=== PATIENT | male | born 1965 | race Caucasian/White ===

== ENCOUNTER 2018-06-15 11:50 | Emergency (ER) | payer MEDICARE, OTHER ==
[~2018-06-15] VITALS: Ht 170.2 cm; Wt 152.0 kg
--- NOTE | 2018-06-15 12:13 | NUR ---
UA OBTAINED WITHOUT PROBLEM URINE CLEAR.
[2018-06-15 12:18] LABS: BILIRUBIN,URINE NEGATIVE (NEGATIVE); CLARITY,URINE CLEAR; COLOR,URINE YELLOW; GLUCOSE, URINE (UA) NEGATIVE (NEGATIVE); KETONES,URINE NEGATIVE (NEGATIVE); LEUKOCYTE ESTERASE ,URINE NEGATIVE (NEGATIVE); NITRITE,URINE NEGATIVE (NEGATIVE); PH,URINE 7 (5-9); PROTEIN,URINE NEGATIVE (NEGATIVE); UROBILINOGEN,URINE NORMAL (NORMAL)
[2018-06-15 12:21] LABS: BASOPHILS % (AUTO) 0 % (0-10); EOSINOPHILS # (AUTO) 0.1 10^3/uL (0.0-0.3); EOSINOPHILS % (AUTO) 1 % (0-10); HEMATOCRIT 49 % (40-54); HEMOGLOBIN 16.6 G/DL (13.3-17.7); LYMPHOCYTES # (AUTO) 1.4 X 10^3 (1.0-4.0); LYMPHOCYTES % (AUTO) 18 % (12-44); MEAN CORPUSCULAR HEMOGLOBIN 31 PG (25-34); MEAN CORPUSCULAR HGB CONC 34 G/DL (32-36); MEAN CORPUSCULAR VOLUME 90 FL (80-99); MEAN PLATELET VOLUME 10.9 FL (7.4-10.4); MONOCYTES # (AUTO) 0.6 X 10^3 (0.0-1.0); MONOCYTES % (AUTO) 8 % (0-12); NEUTROPHILS # (AUTO) 5.6 X 10^3 (1.8-7.8); NEUTROPHILS % (AUTO) 72 % (42-75); PLATELET COUNT 158 10^3/uL (130-400); RED CELL DISTRIBUTION WIDTH 14.6 % (10.0-14.5); WHITE BLOOD COUNT 7.7 10^3/uL (4.3-11.0)
[2018-06-15 12:28] LABS: BACTERIA,URINE NEGATIVE /HPF; SQUAMOUS EPITHELIAL CELL,UR RARE /HPF
--- NOTE | 2018-06-15 12:41 | NUR ---
C/O OF LEG'S STINGING AND BURNING P NETTE AGUILAR NOTIFIED.
--- NOTE | 2018-06-15 12:42 | ED GU-Female ---
General Chief Complaint: - Urinary Stated Complaint: TROUBLE URINATING Nursing Triage Note: AMB TO ROOM WITH FEMALE PATIENT DEAF SHE WILL SIGN FOR PATIENT. C/O HAVING PROBLEM WITH URNATION. REPORTS HAS HAD PROBLEMS FOR 2 DAYS. Nursing Sepsis Screen: No Definite Risk Source: patient Exam Limitations: no limitations History of Present Illness Date Seen by Provider: Jun 15, 2018 Time Seen by Provider: 12:38 Initial Comments this deaf/mute gentleman presents to ER with reports of dysuria, bilateral lower extremity swelling redness and pain. The dysuria has been 2 days. Via his family member who signs for him, occasionally he will void a small amount and occasionally he'll avoid a very large amount. He did void 200 mL of clear yellow urine on arrival.He's also had loose stools for 1 year. he just moved here from [facility] 2 weeks ago. He has not established care with anyone yet. He was told when in [place] that he had poor renal function and did not ever follow-up. He is concerned that may be contributing to his urinary symptoms. Also complains of bilateral lower extremity redness, stinging and burning. Timing/Duration: constant Severity/Quality: mild Location: unknown Radiation: none Activities at Onset: none Prior Genitourinary Problems: none Associated Symptoms: dysuria, urinary frequency Allergies and Home Medications Allergies Coded Allergies: No Known Drug Allergies (Unverified , 06/15/18) Patient Home Medication List Home Medication List Reviewed: Yes Review of Systems Review of Systems Constitutional: see HPI; No chills, No fever EENTM: see HPI Respiratory: see HPI; No cough Cardiovascular: see HPI; No chest pain Genitourinary: see HPI, frequency Musculoskeletal: no symptoms reported Skin: see HPI Psychiatric/Neurological: No Symptoms Reported Endocrine: No Symptoms Reported Past Igkxwxq-[id number]-Rzcjnn Hx Patient Social History Alcohol Use: Occasionally Uses Recreational Drug Use: No Type Used: Smokeless Tobacco Recent Foreign Travel: No Contact w/Someone Who Travel: No Recent Infectious Disease Expo: No Past Medical History Surgeries: No Respiratory: No Cardiac: No Neurological: No Genitourinary: Yes (UNKNOWN KIDNEY ISSURES. ) Gastrointestinal: No Musculoskeletal: No Endocrine: No HEENT: No Hearing Impairment: Deaf Cancer: No Psychosocial: No Integumentary: No Physical Exam Vital Signs Vital Signs - First Documented 06/15/18 11:56 Temp 100.1 Pulse 77 Resp 18 B/P (MAP) 148/110 (123) Pulse Ox 93 Capillary Refill : Less Than 3 Seconds Height, Weight, BMI Height: 5'7.00" Weight: 335lbs. oz. 151.040205nu; BMI Method:Stated General Appearance: WD/WN, no apparent distress HEENT: PERRL/EOMI, normal ENT inspection Neck: non-tender, full range of motion Respiratory: no respiratory distress, no accessory muscle use Gastrointestinal: normal bowel sounds, non tender, soft Extremities: normal range of motion, other (circumferential tenderness to the ankles which are slightly erythematous Given his recent travel here from [facility] and appearance of sedentary lifestyle we will proceed with ultrasound venous lower kidneys.) Neurologic/Psychiatric: alert, normal mood/affect, oriented x 3 Skin: normal color, warm/dry Progress/Results/Core Measures Suspected Sepsis Recent Fever Within 48 Hours: No Infection Criteria Present: None New/Unexplained Altered Menta: No Sepsis Screen: No Definite Risk SIRS Temperature:100.1 Pulse: 77 Respiratory Rate: 18 Laboratory Tests 06/15/18 12:15: White Blood Count 7.7 Blood Pressure 148 /110 Mean: 123 Laboratory Tests 06/15/18 12:15: Creatinine 1.19, Platelet Count 158, Total Bilirubin 0.6 Results/Orders Lab Results Laboratory Tests Test 06/15/18 12:10 06/15/18 12:15 06/15/18 12:33 Range/Units Urine Color YELLOW Urine Clarity CLEAR Urine pH 7 5-9 Urine Specific Dwight 1.005 L 1.016-1.022 Urine Protein NEGATIVE NEGATIVE Urine Glucose (UA) NEGATIVE NEGATIVE Urine Ketones NEGATIVE NEGATIVE Urine Nitrite NEGATIVE NEGATIVE Urine Bilirubin NEGATIVE NEGATIVE Urine Urobilinogen NORMAL NORMAL MG/DL Urine Leukocyte Esterase NEGATIVE NEGATIVE Urine RBC (Auto) NEGATIVE NEGATIVE Urine RBC NONE /HPF Urine WBC NONE /HPF Urine Squamous Epithelial Cells RARE /HPF Urine Crystals NONE /LPF Urine Bacteria NEGATIVE /HPF Urine Casts NONE /LPF Urine Mucus NEGATIVE /LPF Urine Culture Indicated NO White Blood Count 7.7 4.3-11.0 10^3/uL Red Blood Count 5.38 4.35-5.85 10^6/uL Hemoglobin 16.6 13.3-17.7 G/DL Hematocrit 49 40-54 % Mean Corpuscular Volume 90 80-99 FL Mean Corpuscular Hemoglobin 31 25-34 PG Mean Corpuscular Hemoglobin Concent 34 32-36 G/DL Red Cell Distribution Width 14.6 H 10.0-14.5 % Platelet Count 158 130-400 10^3/uL Mean Platelet Volume 10.9 H 7.4-10.4 FL Neutrophils (%) (Auto) 72 42-75 % Lymphocytes (%) (Auto) 18 12-44 % Monocytes (%) (Auto) 8 0-12 % Eosinophils (%) (Auto) 1 0-10 % Basophils (%) (Auto) 0 0-10 % Neutrophils # (Auto) 5.6 1.8-7.8 X 10^3 Lymphocytes # (Auto) 1.4 1.0-4.0 X 10^3 Monocytes # (Auto) 0.6 0.0-1.0 X 10^3 Eosinophils # (Auto) 0.1 0.0-0.3 10^3/uL Basophils # (Auto) 0.0 0.0-0.1 10^3/uL Sodium Level 139 135-145 MMOL/L Potassium Level 4.0 3.6-5.0 MMOL/L Chloride Level 104 98-107 MMOL/L Carbon Dioxide Level 26 21-32 MMOL/L Anion Gap 9 5-14 MMOL/L Blood Urea Nitrogen 15 7-18 MG/DL Creatinine 1.19 0.60-1.30 MG/DL Estimat Glomerular Filtration Rate > 60 BUN/Creatinine Ratio 13 Glucose Level 101 70-105 MG/DL Calcium Level 9.0 8.5-10.1 MG/DL Corrected Calcium 8.9 8.5-10.1 MG/DL Total Bilirubin 0.6 0.1-1.0 MG/DL Aspartate Amino Transf (AST/SGOT) 18 5-34 U/L Alanine Aminotransferase (ALT/SGPT) 20 0-55 U/L Alkaline Phosphatase 79 40-136 U/L B-Type Natriuretic Peptide 45.2 <100.0 PG/ML Total Protein 6.9 6.4-8.2 GM/DL Albumin 4.1 3.2-4.5 GM/DL Glucometer 89 70-110 MG/DL My Orders Orders - BAYLEE PERDUE CASTING TECHNICIAN Cbc With Automated Diff (06/15/18 12:09) Comprehensive Metabolic Panel (06/15/18 12:09) Ua Culture If Indicated (06/15/18 12:09) Bladder Scan (06/15/18 12:09) Iv Heplock-Insert (Order) (06/15/18 12:09) Us Venous Lower Ext Suraj (06/15/18 12:38) Chest 1 View, Ap/Pa Only (06/15/18 12:38) BNP (06/15/18 12:38) Hydrocodone/Apap 5/325 Tablet (Lortab 5 (06/15/18 12:45) Medications Given in ED Current Medications Medications Dose Ordered Sig/Bhargavi Route Start Time Stop Time Status Last Admin Dose Admin Acetaminophen/ Hydrocodone Bitart 1 tab ONCE ONCE PO 06/15/18 12:45 06/15/18 12:46 DC 06/15/18 12:47 1 TAB Vital Signs/I&O 06/15/18 11:56 Temp 100.1 Pulse 77 Resp 18 B/P (MAP) 148/110 (123) Pulse Ox 93 Capillary Refill : Less Than 3 Seconds Blood Pressure Mean: 123 Point of Care Testing Finger Stick Blood Glucose: 89 Blood Glucose Action Taken: Neri PERDUE APRN NOTIFIED Departure Impression Primary Impression: Cellulitis Qualified Codes: L03.119 - Cellulitis of unspecified part of limb Disposition: HOME, SELF-CARE Condition: Stable Departure-Patient Inst. Decision time for Depature: 13:39 Patient Instructions: Cellulitis (Skin Infection), Adult (DC) Add. Discharge Instructions: 1. Antibiotics as directed. I've made an appointment for you with [facility] on July 18 at 9 AM. They do have a walk-in clinic should you need that in the interim.All discharge instructions reviewed with patient and/or family. Voiced understanding. Scripts Hydrocodone/Acetaminophen (Beeson 5-325 Tablet) 1 Each Tablet 1 EACH PO Q6H PRN for PAIN-MODERATE MDD 10, #10 TAB Prov: BAYLEE PERDUE CASTING TECHNICIAN 06/15/18 Amoxicillin/Potassium Clav (Augmentin 875-125 Tablet) 1 Each Tablet 1 EACH PO BID, #14 TAB Prov: BAYLEE PERDUE CASTING TECHNICIAN 06/15/18 BAYLEE PERDUE APRN Jun 15, 2018 12:42
[2018-06-15 12:43] LABS: ALANINE AMINOTRANSFERASE 20 U/L (0-55); ALBUMIN 4.1 GM/DL (3.2-4.5); ALKALINE PHOSPHATASE 79 U/L (40-136); BILIRUBIN,TOTAL 0.6 MG/DL (0.1-1.0); BUN/CREATININE RATIO 13; CARBON DIOXIDE 26 MMOL/L (21-32); CHLORIDE 104 MMOL/L (98-107); CREATININE SERUM 1.19 MG/DL (0.60-1.30); GFR ESTIMATED > 60; GLUCOSE 101 MG/DL (70-105); SODIUM 139 MMOL/L (135-145); TOTAL PROTEIN 6.9 GM/DL (6.4-8.2)
[2018-06-15] MEDS ORDERED: HYDROcodone/APAP 5 MG/325 MG (LORTAB) TAB PO ONE (12:45)
[2018-06-15] MEDS ORDERED: FURO-124 PO (13:33)
[2018-06-15] MEDS ORDERED: POTASSIUM (13:33)
--- NOTE | 2018-06-15 13:39 | Diagnostic Imaging Report ---
PROCEDURE: US Venous Lower Ext Suraj. TECHNIQUE: Multiple Real-time grayscale images were obtained over the lower extremities in various projections bilaterally. Additional duplex Doppler and color Doppler images were also obtained. INDICATION: Leg swelling and pain. FINDINGS: The femoropopliteal deep venous system bilaterally is widely patent with no deep or superficial thrombus. No mass or fluid collection is documented. IMPRESSION: Normal negative bilateral lower extremity venous Doppler and ultrasound exam. Dictated by: Dictated on workstation # [id number]
[2018-06-15] MEDS ORDERED: AMOX-358 PO ×2 (13:41→13:54)
[2018-06-15] MEDS ORDERED: HYDR-4226 PO (13:41)
[2018-06-15] MEDS ORDERED: TAMS0.4C98 PO (13:54)
[2018-06-15 13:59] VITALS: BP 150/95
--- NOTE | 2018-06-15 14:04 | Diagnostic Imaging Report ---
PATIENT HISTORY: Difficulty urination. Swelling, leg pain.. TECHNIQUE: Frontal view of the chest. COMPARISON: None. FINDINGS: Lung volumes are mildly low. The cardiac silhouette is normal in size. There are linear opacities in the lung bases which may represent atelectasis. There is central vascular congestion and mild interstitial prominence. No pleural effusion or pneumothorax is seen. IMPRESSION: 1. Central vascular congestion and mild interstitial prominence which may be due to mild edema. 2. Bibasilar linear opacities, likely atelectasis. Dictated by: Dictated on workstation # [id number]
== END 2018-06-15 13:59 | disposition home or self-care (01) ==
LOC: ER 11:52
DX: L03.115 Cellulitis of right lower limb (principal); L03.116 Cellulitis of left lower limb; F17.200 Nicotine dependence, unspecified, uncomplicated
CPT/HCPCS: 36415; 71045; 80053; 81000; 82962; 83880; 85025; 93970